=== PATIENT | male | born 1965 | race Caucasian/White ===

== ENCOUNTER 2017-03-25 19:43 | Emergency (ER) | payer OTHER ==
--- NOTE | 2017-03-30 19:13 | ER ---
ADMIT: 03/25/2017 [place] [facility] [place] [id number] [address] [id number] IMMANUEL KAVEH [address] [place] [address] [id number] Emergency Room Report SEX: M AGE: 51 : 1965 DATE: 03/25/2017 The patient is a 51-year-old male with past medical history of hypertension, came to the ER with chief complaint of dizziness since this morning, the patient states he was exposed to direct sunlight and heat for some hours and he felt dizzy on and off, in the ER, the patient was anxious and in mild distress. Vitals are normal, heart rate 65, blood pressure is 140/80s, respiratory rate is 16, and EKG was normal sinus rhythm with a rate of [address] or T changes or Q-waves. The patient received IV fluid 1 L. Troponin I was negative. Sodium was 139 with potassium of 3.4 with glucose of 101, creatinine was 0.9. Chest x-ray did not show any acute changes. The patient was reexamined and stated dizziness has been resolved and he had no complaint. The patient was advised to follow up with the primary care doctor. He acknowledged, understood the plan, and agreed with it and was discharged to home. José Julian MD/ homer JOB #: [id number] CC: Nikolas Walter MD, Attending Physician [facility] Physician, Family Physician
== END 2017-03-25 21:50 | disposition home or self-care (01) ==
LOC: ER 19:43
DX: R42 Dizziness and giddiness (principal); I10 Essential (primary) hypertension; Z98.890 Other specified postprocedural states